=== PATIENT | female | born 1965 | race Two or more races ===

== ENCOUNTER 2021-12-13 18:16 | Inpatient (IN) | payer OTHER ==
[~2021-12-13] VITALS: Ht 167.6 cm; Wt 76.7 kg
--- NOTE | 2021-12-13 18:20 | NUR ---
RECEVED PT 56 YRS FEMALE BY RICHARD S/P FELL AND TRIP PAIN ON LT HIP 03/16 AND SHORT DIFARMITY ON LT LEG
--- NOTE | 2021-12-13 18:30 | NUR ---
XRAY DONE AT BED SIDE
--- NOTE | 2021-12-13 18:40 | NUR ---
EXAMIN BY DR. GONZALEZ
[2021-12-13] MEDS ORDERED: MORPHINE SULFATE INJ 2 MG/ML DISP.SYRIN IV ONE (19:00)
[2021-12-13] MEDS ORDERED: MORPHINE SULFATE INJ 2 MG/ML DISP.SYRIN ONE (19:07)
--- NOTE | 2021-12-13 19:30 | NUR ---
HAND OFF TO MELVI BROWN
[2021-12-13] MEDS ORDERED: HYDROMORPHONE 1 MG/1 ML DISP.SYRIN ONE ×3 (19:58→22:36)
[2021-12-13] MEDS ORDERED: HYDROMORPHONE 1 MG/1 ML DISP.SYRIN IV ONE ×3 (20:00→20:30)
--- NOTE | 2021-12-13 20:07 | NUR ---
pt transported to ct via [facility]
--- NOTE | 2021-12-13 20:18 | NUR ---
PT RETURNED TO ER BED [address]
[2021-12-13 20:53] LABS: BASOPHILS # (AUTO) 0.1 K/uL (0.0-0.2); BASOPHILS % (AUTO) 0.4 % (0.0-2.0); EOSINOPHILS % (AUTO) 1.6 % (0.0-6.0); HEMATOCRIT 40 % (33-45); HEMOGLOBIN 13.2 g/dL (11.5-14.8); LYMPHOCYTES # (AUTO) 1.7 K/uL (0.8-4.8); LYMPHOCYTES % (AUTO) 15.3 % (20.0-44.0); MEAN CORPUSCULAR HGB CONC 33 g/dl (31.0-36.0); MEAN CORPUSCULAR VOLUME 89 fL (82-100); MONOCYTES # (AUTO) 0.7 K/uL (0.1-1.30); MONOCYTES % (AUTO) 6.5 % (2.0-12.0); NEUTROPHILS # (AUTO) 8.6 K/uL (1.8-8.9); NEUTROPHILS % (AUTO) 76.2 % (43.0-81.0); PLATELET COUNT (AUTO) 226 K/uL (150-450); RED BLOOD CELL COUNT(AUTO) 4.49 MIL/uL (4.0-5.2); WHITE BLOOD COUNT (AUTO) 11.3 K/uL (4.3-11.0)
--- NOTE | 2021-12-13 21:00 | NUR ---
CALLED [facility], PAGED MERLINE CARROLL DNP
[2021-12-13 21:03] LABS: CALCIUM, SERUM 8.9 mg/dL (8.5-10.1); CREATININE 0.8 mg/dL (0.6-1.3)
[2021-12-13] MEDS ORDERED: ONDANSETRON HCL/PF 4 MG/2 ML VIAL ONE (21:50)
--- NOTE | 2021-12-13 21:52 | NUR ---
PAGED EPIC AGAIN FOR ADMISSION
[2021-12-13] MEDS ORDERED: ONDANSETRON HCL/PF 4 MG/2 ML VIAL IV ONE (22:00)
--- NOTE | 2021-12-13 22:54 | NUR ---
16fr becerra catheter inserted per md order. pt tolerated well.
--- NOTE | 2021-12-13 23:12 | NUR ---
RN NOTES RECEIVED ER ADMISSION REPORT FROM STEPHANIE POND. ALL PERTINENT ADMISSION INFO REGARDING PT NOTED. WILL WAIT FOR PT TO BE TRANSFERRED TO UNIT AND ADDRESS NEEDS ACCORDINGLY. MANAGER PLANNING MADE AWARE.
--- NOTE | 2021-12-13 23:12 | NUR ---
called to give report. rn in isolation room and will call back.
--- NOTE | 2021-12-13 23:17 | NUR ---
report given to darryl
--- NOTE | 2021-12-13 23:30 | NUR ---
pt transported to room 107 via [facility] in stable condition.
[2021-12-13 23:35] VITALS: BP 139/81
--- NOTE | 2021-12-13 23:35 | NUR ---
RECEIVED PT FROM ER VIA GURNEY ACCOMPANIED BY 2 ER STAFF AND TRANSFERRED TO BED VIA 2-3 PERSON ASSIST. PT IS A/OX4; ON ROOM AIR WITH RESPIRATIONS EVEN AND UNLABORED. PT VERBALIZED PAIN ON THE L LOWER EXT; HIP 10/10. COMPREHENSIVE PHYSICAL ASSESSMENT AND PATIENT CARE DONE. CALL LIGHT WITHIN REACH, SAFETY MEASURES AND ISOLATION PRECAUTION IN PLACE, WILL CONTINUE MONITOR AND ASSESS THROUGHOUT THE SHIFT. WILL CARRY OUT MD ORDERS ACCORDINGLY. RESEARCH SCIENTIST MADE AWARE.
[2021-12-14] MEDS ORDERED: Z GUARD REMEDY 4 OZ OINT TP PRN (00:30)
[2021-12-14] MEDS ORDERED: ONDANSETRON HCL/PF 4 MG/2 ML VIAL IVP PRN (00:30)
[2021-12-14] MEDS ORDERED: ACETAMINOPHEN 325 MG TABLET PO PRN ×2 (00:30→17:30)
[2021-12-14] MEDS ORDERED: ZOLPIDEM TARTRATE 5 MG TABLET PO PRN (00:30)
[2021-12-14] MEDS: PANTOPRAZOLE 40 MG VIAL IV SCH ×2 (02:01→08:55)
[2021-12-14 04:00] VITALS: BP 130/83
--- NOTE | 2021-12-14 04:00 | NUR ---
RN NOTES PATIENT REMAINED TO BE IN NO SIGNS OF ACUTE RESPIRATORY DISTRESS , SAFE ENVIRONMENT MAINTAINED FOR PT. WILL CONTINUE TO MONITOR AND REASSESS FOR ANY CHANGES THROUGHOUT THE SHIFT.
[2021-12-14] MEDS: MORPHINE SULFATE INJ 2 MG/ML DISP.SYRIN IV PRN ×3 (05:28→09:55)
--- NOTE | 2021-12-14 06:42 | NUR ---
RN CLOSING NOTE: PATIENT REMAINS IN ROOM IN NO SIGNS OF RESPIRATORY DISTRESS, PATIENT STILL ON ROOM AIR;TOLERATING WELL SATURATING @ >95% SP02. FOR ORTHO SX EVAL TODAY. PT ALREADY ON NPO POST MIDNIGHT. PT STILL COMPLAINTS OF PAIN 8-10/10 CONCENTRATES ON THE L HIP, PRN MED GIVEN SAFETY MEASURES IMPLEMENTED, BED IN LOWEST POSITION, LOCKED, SIDE RAILS UP, CALL LIGHT WITHIN REACH. ALL NEEDS AND ORDERS ADDRESSED DURING THE SHIFT. IV ACCESS MAINTAINED INTACT, SECURED AND FLUSHING WELL. ALL DUE MEDS GIVEN ORDERED & SCHEDULED ; PATIENT TOLERATED WELL. PATIENT KEPT CLEAN AND COMFORTABLE WITHIN THE SHIFT. PATIENT ENDORSED TO INCOMING SHIFT RN WITH STABLE VITAL SIGN AND FOR CONTINUITY OF CARE.
--- NOTE | 2021-12-14 07:00 | NUR ---
MS RN OPENING NOTE PATIENT LAYING IN BED, A/O X 4, ABLE TO MAKE NEEDS KNOWN. TOLERATING WELL ON ROOM AIR WITH NO S/S RESPIRATORY DISTRESS. L FA # 20 G SL CLEAN, INTACT, AND FLUSHING WELL. PATIENT COMPLAINT OF L HIP PAIN BUT STATED SHE IS WILLING TO WAIT FOR SCHEDULED MORPHINE. SAFETY MEASURES IN PLACE: BED IN LOWEST LOCKED POSITION, SIDE RAILS UP X 2, CALL LIGHT WITHIN REACH. WILL CONTINUE TO MONITOR.
[2021-12-14 12:00] VITALS: BP 126/77
[2021-12-14] MEDS ORDERED: FENTANYL PF 100MCG/2ML AMPUL ONE (13:08)
[2021-12-14] MEDS ORDERED: FENTANYL PF 250MCG/5ML AMPUL ONE (13:08)
[2021-12-14] MEDS ORDERED: HYDROMORPHONE INJ 2 MG/ML DISP.SYRIN ONE (13:08)
[2021-12-14] MEDS ORDERED: FAMOTIDINE/PF INJ 20 MG/2 ML VIAL IV ONE (13:09)
[2021-12-14] MEDS ORDERED: MIDAZOLAM HCL 2 MG/2ML VIAL ONE (13:09)
[2021-12-14] MEDS ORDERED: ROCURONIUM BROMIDE 50 MG/5 ML ONE (13:09)
[2021-12-14] MEDS ORDERED: BUPIVACAINE 0.25% 75 MG/30 ML VIAL ONE (13:59)
[2021-12-14] MEDS ORDERED: TRANEXAMIC ACID 1,000 MG in IV NS 0.9% 100 ML IV ONE (14:30)
[2021-12-14] MEDS ORDERED: HYDROCODONE/APAP 5/325MG TABLET PO PRN (17:30)
--- NOTE | 2021-12-14 17:44 | NUR ---
MS RN NOTES PATIENT RETURNED FROM SURGERY, VITAL SIGNS STABLE: BP 121/70, RR 16, T 97.4, O2 98% ON 3 LPM O2 VIA CANNULA. PATIENT LAYING SUPINE IN BED WITH DRESSING AND ICE PACK ON LEFT HIP FOLLOWING TOTAL LEFT HIP REPLACEMENT. NO COMPLAINTS OF PAIN OR DISCOMFORT AT THIS TIME. WILL CONTINUE TO MONITOR.
[2021-12-14] MEDS ORDERED: BISACODYL SUPP (10 MG) 10 MG/SUPP.RECT SUPP.RECT RC PRN (18:00)
[2021-12-14] MEDS ORDERED: SENNOSIDES 8.6 MG TABLET PO PRN (18:00)
[2021-12-14] MEDS ORDERED: DOCUSATE SODIUM 250 MG CAPSULE PO PRN (18:00)
[2021-12-14 18:29] LABS: HEMOGLOBIN 12.4 g/dL (11.5-14.8)
--- NOTE | 2021-12-14 19:00 | NUR ---
MS RN CLOSING NOTES PATIENT LAYING IN BED, A/O X 4, ABLE TO MAKE NEEDS KNOWN. URDU AND FARSI SPEAKING. FAMILY AT BEDSIDE. TOLERATING WELL ON ROOM AIR WITH NO S/S RESPIRATORY DISTRESS. L FA # 20 G SL CLEAN, INTACT, AND FLUSHING WELL. NO COMPLAINTS OF PAIN OR DISCOMFORT AT THIS TIME. PATIENT NOW ON REGULAR DIET. SAFETY MEASURES IN PLACE: BED IN LOWEST LOCKED POSITION, SIDE RAILS UP X 2, CALL LIGHT WITHIN REACH. ALL NEEDS MET. WILL ENDORSE TO WOODEN FURNITURE POLISHER FOR RIOS.
--- NOTE | 2021-12-14 19:43 | NUR ---
RN OPENING NOTE RECEIVED PATIENT IN BED, ON RA, TOLERATING WELL WITH NO SIGNS OF RESPIRATORY DISTRESS, IV ACCESS ON LFA #20G INTACT, SECURED AND FLUSHING WELL. NO COMPLAINTS OF CHEST PAIN AT THIS TIME, NOTED WITH DRY DRESSING ON L HIP, WITH VILLARREAL CATHETER IN PLACED DRAINING TO YELLOW COLORED URINE BY GRAVITY. BED IN LOWEST AND LOCKED POSITION, SIDE RAILS UP, CALL LIGHT WITHIN REACH, WILL CONTINUE TO MONITOR THROUGHOUT THE SHIFT.
[2021-12-14 20:00] VITALS: BP 124/72
[2021-12-14] MEDS: ANCEF 1 GM/50 ML D5W IV SCH ×2 (22:36)
[2021-12-14] MEDS: HYDROCODONE/APAP 5/325MG TABLET PO PRN (23:14)
[2021-12-15 04:00] VITALS: BP 105/72
[2021-12-15] MEDS: ANCEF 1 GM/50 ML D5W IV SCH ×2 (06:02)
[2021-12-15 06:47] LABS: CALCIUM, SERUM 8.6 mg/dL (8.5-10.1); CREATININE 0.7 mg/dL (0.6-1.3); PHOSPHORUS 3.8 mg/dL (2.5-4.9); POTASSIUM 4.2 mmol/L (3.5-5.1)
[2021-12-15 07:09] LABS: BASOPHILS % (AUTO) 0.3 % (0.0-2.0); EOSINOPHILS % (AUTO) 1.6 % (0.0-6.0); HEMATOCRIT 36 % (33-45); HEMOGLOBIN 12.2 g/dL (11.5-14.8); LYMPHOCYTES # (AUTO) 1.2 K/uL (0.8-4.8); LYMPHOCYTES % (AUTO) 14.3 % (20.0-44.0); MEAN CORPUSCULAR HGB CONC 34 g/dl (31.0-36.0); MEAN CORPUSCULAR VOLUME 89 fL (82-100); MONOCYTES # (AUTO) 0.9 K/uL (0.1-1.30); MONOCYTES % (AUTO) 10.9 % (2.0-12.0); NEUTROPHILS # (AUTO) 6.1 K/uL (1.8-8.9); NEUTROPHILS % (AUTO) 72.9 % (43.0-81.0); PLATELET COUNT (AUTO) 198 K/uL (150-450); RED BLOOD CELL COUNT(AUTO) 4.03 MIL/uL (4.0-5.2); WHITE BLOOD COUNT (AUTO) 8.4 K/uL (4.3-11.0)
--- NOTE | 2021-12-15 07:30 | NUR ---
RN OPENING NOTE RECEIVED PATIENT LYING IN BED, A/O X 4, PATIENT ON OXYGEN AT 2L/MIN WITH SATURATION OF 100% PATIENT IS ABLE TO COMMUNICATE NEEDS. DAUGHTER AT BEDSIDE. PATIENT HAS SALINE LOCK ON LFA, PATENT, NO S/S INFILTRATION AND, FLUSHES WELL. WILL CONTINUE TO MONITOR FOR PAIN MANAGEMENT AND WILL GIVE SCHEDULED MEDS NEEDED. SAFETY MEASURES IN PLACE: CALL LIGHT WITHIN REACH, BED IN LOWEST LOCKED POSITION, SIDE RAILS UP X 2, CALL LIGHT. WILL CONTINUE TO MONITOR. Addendum: 12/15/21 at 1832 by KRISH KHAN RN RN NOTES S/P LEFT HIP TOTAL ARHTROPLASTY. FOR PHYSICAL THERAPY TODAY.
[2021-12-15 08:00] VITALS: BP 123/65
[2021-12-15] MEDS: HYDROCODONE/APAP 5/325MG TABLET PO PRN (08:00)
[2021-12-15] MEDS: ENOXAPARIN SODIUM 40 MG/0.4 ML DISP.SYRIN SQ SCH (09:05)
[2021-12-15] MEDS: PANTOPRAZOLE 40 MG VIAL IV SCH (09:06)
--- NOTE | 2021-12-15 09:30 | NUR ---
RN NOTES DUE MEDS GIVEN
[2021-12-15] MEDS: MORPHINE SULFATE INJ 4 MG/ML DISP.SYRIN IV PRN ×3 (09:55→20:59)
--- NOTE | 2021-12-15 14:07 | NUR ---
URINE SPECIMEN OBTAINED AND SENT TO LAB ORDERED
[2021-12-15 16:00] VITALS: BP 123/72
--- NOTE | 2021-12-15 18:36 | NUR ---
RN CLOSING NOTE: PATIENT LYING COMFORTABLY IN BED AT THIS TIME WITH DAUGHTERS AT BEDSIDE. SALINE LOCK ON LFA, FLUSHING WELL, IV SITE WITH NO S/S INFILTRATION. INSTRUCTED PATIENT TO CALL FOR ASSISTANCE WHENEVER POSSIBLE. CALL LIGHT WITHIN REACH. DRESSING ON LEFT HIP INTACT, NO BLEEDING NOTED. WILL ENDORSE TO THE INCOMING NURSE
--- NOTE | 2021-12-15 19:20 | NUR ---
MS RN OPENING NOTE RECEIVED PATIENT LYING IN BED, A/O X 4, PATIENT ON OXYGEN AT 2L/MIN WITH SATURATION OF 100% PATIENT IS ABLE TO COMMUNICATE NEEDS. DAUGHTERS AT BEDSIDE. PATIENT HAS A INTACT AND PATENT LFA SALINE LOCK. PATIENT HAS A VILLARREAL, INTACT AND PATENT DRAINING YELLOW URINE. PATIENT STATED SHE WAS ANXIOUS TO TAKE MEDICATION TO HELP WITH BM, UNTIL SHE IS ABLE TO AMBULATE TO RESTROOM. PATIENT HASNT HAD A BM FOR 3 DAYS. PATIENT ALSO ADVISED SHE HASNT HAD FLATUS FOR 3 DAYS WELL.PATIENT AGREED TO TRY PRUNE JUICE TONIGHT, AND DOCUSATE TOMORROW AFTER PT. WILL CONTINUE TO MONITOR FOR PAIN MANAGEMENT AND WILL GIVE SCHEDULED MEDS NEEDED. SAFETY MEASURES IN PLACE: CALL LIGHT WITHIN REACH, BED IN LOWEST LOCKED POSITION, SIDE RAILS UP X 2, CALL LIGHT. WILL CONTINUE TO MONITOR.
[2021-12-15 19:22] LABS: BILIRUBIN,URINE NEGATIVE (NEGATIVE); COLOR,URINE YELLOW (YELLOW); LEUKOCYTE ESTERASE ,URINE SMALL (NEGATIVE); NITRITE, URINE NEGATIVE (NEGATIVE); PROTEIN,URINE NEGATIVE (NEGATIVE); UGLUCOSE NEGATIVE (NEGATIVE); UROBILINOGEN,URINE 0.2 EU/dL (0.2)
[2021-12-15 19:43] LABS: BACTERIA,URINE RARE /HPF (None Seen); SQUAMOUS EPITHELIAL CELL,UR 0-2 /HPF (None Seen)
[2021-12-15 19:44] LABS: MUCUS,URINE Few /LPF (None Seen)
[2021-12-15 20:00] VITALS: BP 121/71
--- NOTE | 2021-12-15 20:59 | NUR ---
MS RN NOTE GAVE PATIENT MORPHINE 3MG FOR PAIN 02/14. PATIENT ALSO DRANK 120 ML PRUNE JUICE.
[2021-12-16 04:00] VITALS: BP 122/78
[2021-12-16] MEDS: MORPHINE SULFATE INJ 4 MG/ML DISP.SYRIN IV PRN (05:29)
--- NOTE | 2021-12-16 06:15 | NUR ---
MS RN NOTE PATIENT HAD SOME SCRATCH WATERS ON HER BACK DURING BED BATH FROM ITCHINESS. I REACHED OUT TO DR. CARROLL TO SEE IF SOMETHING CAN BE ORDERED. IF NO RESPONSE I WILL ENDORSE TO MORNING NURSE
--- NOTE | 2021-12-16 06:39 | NUR ---
MS RN CLOSING NOTE PATIENT AWAKE IN BED, A/OX4. PATIENT HAS A NC @4L BUT SATS 97%-100% ON RA ALSO. VS WNL, PATIENT PAIN IS TOLERABLE AFTER MORPHINE. PATIENT STILL HAD ITCHINESS SO I HELP HER WITH HER ANTI ITCH SPRAY HER DAUGHTERS BROUGHT FROM HOME, ITS A RUBBING ALCOHOL MIXTURE. DRESSING ON LEFT HIP INTACT, NO BLEEDING NOTED. WILL ENDORSE TO THE MORNING NURSE
--- NOTE | 2021-12-16 07:30 | NUR ---
MS RN OPENING NOTE RECEIVED PATIENT LYING IN BED ASLEEP , A/O X 4, PATIENT ON OXYGEN AT 2L/MIN WITH SATURATION OF 100% PATIENT IS ABLE TO COMMUNICATE NEEDS. DAUGHTERS AT BEDSIDE. PATIENT HAS A INTACT AND PATENT LFA SALINE LOCK. PATIENT HAS A VILLARREAL, INTACT AND PATENT DRAINING CLEAR YELLOW URINE VIA GRAVITY. SAFETY PRECAUTIONS MAINTAINED:: BED IN LOWEST LOCKED POSITION, SIDE RAILS UP X 2, CALL LIGHT IN EASY REACH FOR HELP/ASSISTANCE,WILL MONITOR FOR ANY SIGNIFICANT CHANGES.
[2021-12-16] MEDS: ENOXAPARIN SODIUM 40 MG/0.4 ML DISP.SYRIN SQ SCH (08:42)
[2021-12-16] MEDS ORDERED: PANTOPRAZOLE 40 MG TABLET.DR PO SCH (09:00)
--- NOTE | 2021-12-16 10:00 | NUR ---
RN NOTES: REMOVED VILLARREAL CATHERTER WITH OUTPUT OF 450ML CLEAR YELLOW COLORED URINEE
--- NOTE | 2021-12-16 11:44 | NUR ---
RN NOTES: PATIENT ABLE TO PEE S/P VILLARREAL CATHETER REMOVAL, PATIENT ABLE TO WALK IN THE BATHROOM WITH ASSISTANCE.
[2021-12-16 12:00] VITALS: BP 122/79
--- NOTE | 2021-12-16 15:16 | NUR ---
patient wants prescription for norco /asa,dr. haile notified and per md only tylenol alternate with ibuprofen.DR. CAVAZOS notified also about pain meds no order.cm made aware.
[2021-12-16] MEDS ORDERED: ASPI-992 PO (15:36)
[2021-12-16] MEDS ORDERED: HYDR-4275 PO (15:36)
[2021-12-16] MEDS: HYDROCODONE/APAP 5/325MG TABLET PO PRN (15:54)
--- NOTE | 2021-12-16 17:54 | NUR ---
GEOTHERMAL SYSTEM INSTALLER NOTES: PATIENT DC HOME WITH HOME HEALTH. A/O X 4 AND ABLE TO VERBALIZED NEEDS. NO SOB OR CARDIAC DISTRESS NOTED. ON ROOM AIR AND TOLERATING WELL. DENIES PAIN AT THIS TIME. NOTED WITH DRY DRESSING ON LEFT HIP INTACT WITH NO S/S OF DISCHARGES. DISCHARGE INSTRUCTION GIVEN TO PATIENT AND DAUGHTER (CINTHYA) VERBALIZED UNDERSTANDING. BELONGINGS LIST SIGNED AND ALL BELONGINGS TAKEN WITH THE FAMILY. REMOVED IV ACCESS. REMOVED ID BAND. TRANSPO CAME CLINICAL MOLECULAR GENETICIST PATIENT VIA REGULAR GURNEY. PATIENT STABLE WHEN LEFT THE UNIT.
== END 2021-12-16 19:08 | disposition home health service (06) | DRG 323 ==
LOC: ER 18:19 → MEDSG1 23:21
PROVIDERS: ADMIT Nurse Practitioner Acute Care
PROC: 0SRB0JZ Replacement of Left Hip Joint with Synthetic Substitute, Open Approach (ICD-10-PCS; principal; 2021-12-14)
DX: S72.002A Fracture of unspecified part of neck of left femur, initial encounter for closed fracture (principal); D72.829 Elevated white blood cell count, unspecified; F41.9 Anxiety disorder, unspecified; I10 Essential (primary) hypertension; W01.0XXA Fall on same level from slipping, tripping and stumbling without subsequent striking against object, initial encounter; Y93.9 Activity, unspecified; Y92.89 Other specified places as the place of occurrence of the external cause; Z20.822 Contact with and (suspected) exposure to COVID-19
CPT/HCPCS: 36415; 71045-TC; 73502; 73700-TC; 80048-TC; 81001; 83735-TC; 84100-TC; 85025-TC; 85027-TC; 85730-TC; 87086-TC; 93307-TC; 94799-TC; 97116-TC; 97530-TC; A4217; A6209; C1776; C9113; C9803; G0378; J0690; J1170; J1650; J2250; J2270; J2405; J2704; J2765; J3010; J3490; J7030; J7050; J7060